=== PATIENT | male | born 1980 | race Caucasian/White ===

== ENCOUNTER 2023-09-01 02:38 | Inpatient (IN) | payer OTHER ==
[~2023-09-01] VITALS: Ht 175.3 cm; Wt 117.0 kg
[2023-09-01] VITALS (12 sets, daily range): BP systolic 108–160; BP diastolic 65–94; PULSE 88–120; TEMP 97.8–100.3
[2023-09-01] MEDS ORDERED: NS 1,000 ML IV ONE ×2 (03:00→05:45)
[2023-09-01] MEDS ORDERED: fentaNYL 50 MCG/ML 2 ML VIAL IV PRN (03:00)
[2023-09-01] MEDS ORDERED: Ondansetron 4 MG/2 ML VIAL IV ONE ×2 (03:00→04:00)
[2023-09-01 03:05] LABS: BASO # 0.1 K/mm3 (0.0-0.2); BASO % 0.5 % (0.0-2.0); EOS # 0.2 K/mm3 (0.0-0.7); EOS % 1.6 % (0.0-4.0); GRAN # 9.1 K/mm3 (1.4-6.5); GRAN % 64.1 % (42.2-75.2); HEMATOCRIT 47.2 % (42.0-52.0); HEMOGLOBIN 16.3 g/dl (13.5-18.0); LYMPH # 3.5 K/mm3 (1.2-3.4); LYMPH % 24.7 % (20.0-51.0); MEAN CELL VOLUME 90 fl (80.0-100.0); MEAN CORPUSCULAR HEMOGLOBIN 31 pg (27-31); MEAN CORPUSCULAR HGB CONC 35 g/dl (33.0-37.0); MEAN PLATELET VOLUME 10.9 fl (7.4-10.4); MONO # 1.2 K/mm3 (0.1-0.6); MONO % 8.5 % (1.7-9.3); PLATELET COUNT 299 K/mm3 (130-400); RED BLOOD COUNT 5.23 M/mm3 (4.20-5.60); REDCELL DISTRIBUTION WIDTH-CV 12.4 % (11.5-14.5)
[2023-09-01 03:26] LABS: TROPONIN-I < 0.010 ng/mL (0.00-0.033)
[2023-09-01 03:28] LABS: ALANINE AMINOTRANSFERASE 613 U/L (0-55); ALBUMIN 3.8 gm/dL (3.5-5.0); ALKALINE PHOSPHATASE 164 U/L (40-150); ANION GAP 15 mmol/L (7-16); AST,SGOT 656 U/L (5-34); BILIRUBIN,TOTAL 2.4 mg/dL (0.2-1.2); BLOOD UREA NITROGEN 18 mg/dL (9-21); CALCIUM 10.2 mg/dL (8.4-10.2); CARBON DIOXIDE 21 mmol/L (22-29); CHLORIDE 100 mmol/L (98-107); CREATININE, serum 1.18 mg/dL (0.72-1.25); GLUCOSE 166 mg/dL (70-99); POTASSIUM 3.9 mmol/L (3.5-4.5); SODIUM 136 mmol/L (136-145); TOTAL PROTEIN 7.6 gm/dL (6.2-8.1)
[2023-09-01] MEDS ORDERED: Iohexol 300 - 100 ML VIAL IV ONE (03:33)
[2023-09-01] MEDS ORDERED: NS 74 ML IV SCH (03:33)
[2023-09-01 03:38] LABS: COLLECTION METHOD CLEAN CATCH
[2023-09-01 04:12] LABS: URINE APPEARANCE Clear (CLEAR/HAZY); URINE COLOR OTHER (YELLOW)
[2023-09-01 04:13] LABS: PH 6.5 (5.0-8.5); URINE BLOOD Negative (NEGATIVE); URINE GLUCOSE Negative (NEGATIVE); URINE KETONE Negative (NEGATIVE); URINE NITRATE Negative (NEGATIVE); URINE PROTEIN(semi-quant) TRACE (NEGATIVE); URINE UROBILINOGEN 0.2 E.U/dL (0.2-1.0)
[2023-09-01 04:14] LABS: TRICYCLIC ANTIDEPRESS URINE NEGATIVE
[2023-09-01 04:19] LABS: SQUAMOUS EPITHELIAL 0-2 /hpf (0-10); URINE BACTERIA Rare /hpf (NONE SEEN); URINE RBC 0-2 /hpf (0-2)
[2023-09-01 05:12] LABS: LIPASE 16776 U/L (8-78)
[2023-09-01] MEDS ORDERED: Morphine 4 MG/ML VIAL IV ONE ×2 (05:45→07:15)
[2023-09-01] MEDS ORDERED: PRINIVIL40 MG PO (06:49)
[2023-09-01] MEDS ORDERED: NORVASC 10MG10 MG PO (06:50)
[2023-09-01] MEDS ORDERED: HCTZ 25MG TAB25 MG PO (06:50)
[2023-09-01] MEDS ORDERED: VOLTAREN 75 DR75 MG PO (06:51)
[2023-09-01] MEDS ORDERED: ULTRAM 50MG TAB50 MG PO (06:51)
[2023-09-01] MEDS ORDERED: VITAMIN D31000 IU PO (06:52)
--- NOTE | 2023-09-01 08:19 | NUR ---
Patient arrived to the medical unit, complaining of pain in the abdomen 05/09. Assessment intake completed.
[2023-09-01] MEDS ORDERED: Ondansetron 4 MG/2 ML VIAL IV PRN (09:00)
[2023-09-01] MEDS ORDERED: Morphine 4 MG/ML VIAL IV PRN (09:00)
[2023-09-01] MEDS ORDERED: NS 1,000 ML IV SCH (09:00)
[2023-09-01] MEDS ORDERED: amLODIPine 10 MG TAB PO SCH (12:04)
[2023-09-01] MEDS ORDERED: Lisinopril 20 MG TAB PO SCH (12:04)
[2023-09-01] MEDS ORDERED: diphenhydrAMINE 25 MG CAP PO PRN (12:30)
[2023-09-01] MEDS ORDERED: diphenhydrAMINE 50 MG/ML 1 ML VIAL IV PRN (12:30)
[2023-09-01] MEDS ORDERED: Naloxone 0.4 MG/ML VIAL IV PRN (12:30)
[2023-09-01] MEDS ORDERED: Morphine PCA 1 MG/ML 30 ML SYRINGE IV SCH (12:30)
--- NOTE | 2023-09-01 13:18 | NUR ---
well service derrick worker met with patient to discuss discharge planning. Patient lives in [place]. Best point of contact is [facility]# [phone]. PCP is Dr. Fajardo, [facility] is [facility]. Patient has no current issues affording medications. Patient does not have a DPOA-HC and does not wish to complete one at this time. Patient reports he has no DME and is independent with ADLS. Patient has a form of transportation to go to and from appointments. Patient has no concerns about returning home at time of discharge. Discharge Plan: Home
--- NOTE | 2023-09-01 17:12 | NUR ---
Patient using SAS DEVELOPER, states his pain is 5/10.He tries to sleep intermitently.
[2023-09-01] MEDS ORDERED: Sennosides/Docusate 8.6-50 MG TAB PO SCH (21:00)
[2023-09-02] VITALS (19 sets, daily range): BP systolic 105–154; BP diastolic 62–84; PULSE 90–120; TEMP 97.8–100.2
--- NOTE | 2023-09-02 01:55 | NUR ---
PT ALERT AND ORIENTED X4. UPON ENTERING THE ROOM PT IS ALERT RESTING IN BED AWAKE. PT HAS BIG DATA ANALYTICS LEAD PUMP AND IV FLUIDS AT 150ML/HR, NO REDNESS, DRAINAGE, OR PHLEBITIS NOTED. SHIFT ASSESSMENT COMPLETE, VSS. MEDICATED PER EMAR. NO NEW CONCERNS REPORTED. EVEN UNLABORED RESPR ON 2 LITERS NASAL CANNULA. DENIES FURTHER NEED AT THIS TIME.CALL LIGHT WITHIN REACH,.
--- NOTE | 2023-09-02 03:50 | NUR ---
pt mews score of 4. Hospitalist notified, tele ordered. Pt denies chest pain but has c/o nausea, zofran given per emar.
[2023-09-02 05:48] LABS: HEMATOCRIT 44.2 % (42.0-52.0); HEMOGLOBIN 15.3 g/dl (13.5-18.0); MEAN CELL VOLUME 90 fl (80.0-100.0); MEAN CORPUSCULAR HEMOGLOBIN 31 pg (27-31); MEAN CORPUSCULAR HGB CONC 35 g/dl (33.0-37.0); MEAN PLATELET VOLUME 10.5 fl (7.4-10.4); PLATELET COUNT 220 K/mm3 (130-400); RED BLOOD COUNT 4.92 M/mm3 (4.20-5.60); REDCELL DISTRIBUTION WIDTH-CV 12.7 % (11.5-14.5)
[2023-09-02 06:09] LABS: BAND 3 % (0-10); LYMPHOCYTE 9 % (20.0-51.0); NEUTROPHILS 83 % (42.0-75.2)
[2023-09-02 06:17] LABS: ALBUMIN 2.7 gm/dL (3.5-5.0); BILIRUBIN,TOTAL 2.2 mg/dL (0.2-1.2); CALCIUM 7.7 mg/dL (8.4-10.2); CHOLESTEROL RISK RATIO 3.1; CREATININE, serum 0.89 mg/dL (0.72-1.25); MAGNESIUM 1.8 mg/dL (1.6-2.6)
--- NOTE | 2023-09-02 08:48 | NUR ---
Initial visit; Patient states he's not sure how he is doing this morning but thanked Telephone Directory Deliverer for stopping and wishing him well and offering God's blessings.
--- NOTE | 2023-09-02 10:19 | NUR ---
Patient alert and oriented x4. Complains of pain 5/10, GEOTHERMAL SYSTEM INSTALLER pump running per orders. Patient's repsirations and SpO2 stable on 3L. Patient ambulating self to bathroom with no issues besides pain, required a hand to sit up. Dyspnea noted with exertion, but would go away with rest. Nausea increases with sitting up, but no emesis noted. Last Zofran administered around 0550. NS running per orders through right forearm IV. Patient resting in bed with call light in reach, all needs met at this time.
[2023-09-02] MEDS ORDERED: BYSTOLIC10 MG PO (11:13)
[2023-09-02] MEDS ORDERED: LIPITOR20 MG PO (11:14)
[2023-09-02] MEDS ORDERED: metroNIDAZOLE 500 MG/100 ML IVPB IV SCH (12:01)
[2023-09-02] MEDS ORDERED: cefTRIAXone 1 G in Water For Injection,Sterile 10 ML IV SCH (12:01)
[2023-09-02] MEDS ORDERED: LR 1,000 ML IV SCH (15:00)
--- NOTE | 2023-09-02 15:57 | NUR ---
PCT notified this nurse that patient's temperature was 100.2. Patient reports malaise, and moderate pain continues. MACHINE MAINTENANCE MECHANIC pump running per orders. NS discontinued and LR running at 125ml/hr. Patient in bed with call light in reach. RAFAEL Wagner notified of temperature. No current orders for Tylenol PRN noted.
[2023-09-02] MEDS ORDERED: Acetaminophen 325 MG TAB PO ONE (16:15)
--- NOTE | 2023-09-02 18:17 | NUR ---
One time order of Tylenol effective for treating fever. Temperature re-taken and noted to be 98.4. States pain is still moderate, but he feels slightly better than he did this morning. Patient resting in bed at this time with call light in reach, all needs met at this time.
[2023-09-03] VITALS (14 sets, daily range): BP systolic 105–164; BP diastolic 62–89; PULSE 90–184; TEMP 98.1–100.3
--- NOTE | 2023-09-03 05:20 | NUR ---
ASSESSMENT COMPLETE FOR NIGHT STAFF. PT COMPLAINED OF PAIN, EVEN WITH THE PAIN PUMP. HOWEVER, PT DIDN'T WANT ME TO CONTACT THE HOSPITALIST FOR ALTERATIONS IN HIS PAINAGEMENT. PT ALSO COMPLAINED OF NAUSEA. PT GIVEN ZOFRAN FOR NAUSEA. PT FELT THE ZOFRAN WAS EFFECTIVE FOR HIS NAUSEA. PT DENIED CHEST PAIN, VOMITING, DIARRHEA OR DIZZINESS. CALL LIGHT WITHIN REACH.
[2023-09-03 07:33] LABS: BASO % 0.3 % (0.0-2.0); EOS % 0.2 % (0.0-4.0); GRAN # 11.3 K/mm3 (1.4-6.5); GRAN % 79.5 % (42.2-75.2); HEMATOCRIT 37.2 % (42.0-52.0); LYMPH # 1.3 K/mm3 (1.2-3.4); LYMPH % 9.1 % (20.0-51.0); MEAN CELL VOLUME 90 fl (80.0-100.0); MEAN CORPUSCULAR HEMOGLOBIN 31 pg (27-31); MEAN CORPUSCULAR HGB CONC 34 g/dl (33.0-37.0); MEAN PLATELET VOLUME 11.2 fl (7.4-10.4); MONO # 1.4 K/mm3 (0.1-0.6); MONO % 10.2 % (1.7-9.3); PLATELET COUNT 173 K/mm3 (130-400); RED BLOOD COUNT 4.14 M/mm3 (4.20-5.60); REDCELL DISTRIBUTION WIDTH-CV 12.7 % (11.5-14.5)
[2023-09-03 07:37] LABS: HEMOGLOBIN 12.8 g/dl (13.5-18.0)
[2023-09-03 08:00] LABS: ALBUMIN 2.2 gm/dL (3.5-5.0); BILIRUBIN,TOTAL 1.1 mg/dL (0.2-1.2); CALCIUM 7.2 mg/dL (8.4-10.2); CREATININE, serum 0.78 mg/dL (0.72-1.25); MAGNESIUM 1.7 mg/dL (1.6-2.6); POTASSIUM 3.7 mmol/L (3.5-4.5); TOTAL PROTEIN 5.7 gm/dL (6.2-8.1)
--- NOTE | 2023-09-03 09:41 | NUR ---
Patient alert and oriented x4. Shift assessment complete, no new variances noted. Patient reports slight improvement of pain at 3/10 which is less than yesterday's reported level of 5/10. Patient continues to ambulate self to bathroom with no issues. Slight difficulty noted with sitting up from bed, shortness of breath noted with exertion. Heart rate continues to be tachycardic. FLIGHT CREW TIME CLERK pump morphine and LR running per orders through left forearm. Patient in bed with call light in reach, all needs met at this time.
[2023-09-03] MEDS ORDERED: NS 1,000 ML IV SCH ×2 (12:30→17:15)
[2023-09-03] MEDS ORDERED: oxyCODONE 5 MG TAB PO PRN (12:45)
[2023-09-03] MEDS ORDERED: Morphine 4 MG/ML VIAL IV PRN (12:45)
--- NOTE | 2023-09-03 14:32 | NUR ---
Patient taken off WATERSHED COORDINATOR per orders, reported increase in pain level 5/10 after walking around room and sitting in recliner. PRN morphine administered. NS running at 100ml/hr through left forearm IV. Patient on room air for a few minutes following WATERSHED COORDINATOR pump discontinuation and SpO2 checked. O2 sat 86% on room air. Patient placed on 2L via nasal cannula and O2 sat increased to 91%. Patient currently sitting up in recliner eating a clear liquid tray, tolerating PO fluids well at this time. Patient voices no concerns other than surgery planning, states he is anxious to get home as soon as possible.
--- NOTE | 2023-09-03 19:07 | NUR ---
Patient continues to have moderate pain and be active in room. Complains of increase in pain 5/10, PRN Roxicodone administered. Consent obtained for procedure in the morning as well as anesthesia. Patient still on 2L O2 via nasal cannula. Currently laying in bed with call light in reach, all needs met at this time.
[2023-09-03] MEDS ORDERED: Acetaminophen 325 MG TAB PO PRN (20:00)
[2023-09-04] VITALS (744 sets, daily range): BP systolic 112–172; BP diastolic 68–99; PULSE 81–125; TEMP 98–99.6; O2SAT 56–100
[2023-09-04] MEDS ORDERED: Indocyanine Green 12.5 MG in Water For Injection,Sterile 2.5 ML IV ONE (05:00)
[2023-09-04] MEDS ORDERED: dexAMETHasone 10 MG/ML VIAL ONE (07:43)
[2023-09-04] MEDS ORDERED: fentaNYL 50 MCG/ML 2 ML VIAL ONE ×2 (07:43→09:34)
[2023-09-04] MEDS ORDERED: Rocuronium 50 MG/5 ML Multi-Dose VIAL ONE (07:43)
[2023-09-04] MEDS ORDERED: Ketorolac 30 MG/ML VIAL ONE (07:43)
[2023-09-04] MEDS ORDERED: Ondansetron 4 MG/2 ML VIAL ONE (07:43)
[2023-09-04] MEDS ORDERED: Lidocaine PF 2% (20 MG/ML) 5 ML VIAL ONE (07:43)
[2023-09-04] MEDS ORDERED: NS 10 ML IV ONE (07:43)
[2023-09-04] MEDS ORDERED: Ondansetron 4 MG/2 ML VIAL IV PRN (08:00)
[2023-09-04] MEDS ORDERED: hydrALAZINE 20 MG/ML 1 ML VIAL IV PRN (08:00)
[2023-09-04] MEDS ORDERED: HYDROmorphone 2 MG/1 ML VIAL IV PRN (08:00)
[2023-09-04] MEDS ORDERED: Promethazine 25 MG/ML 1 ML VIAL IV PRN (08:00)
[2023-09-04] MEDS ORDERED: fentaNYL 50 MCG/ML 2 ML VIAL IV PRN (08:00)
[2023-09-04 08:25] LABS: BASO # 0.1 K/mm3 (0.0-0.2); BASO % 0.6 % (0.0-2.0); EOS % 0.2 % (0.0-4.0); GRAN # 9.9 K/mm3 (1.4-6.5); GRAN % 78.9 % (42.2-75.2); HEMOGLOBIN 12.5 g/dl (13.5-18.0); LYMPH % 8.2 % (20.0-51.0); MEAN CELL VOLUME 90 fl (80.0-100.0); MEAN CORPUSCULAR HEMOGLOBIN 31 pg (27-31); MEAN CORPUSCULAR HGB CONC 34 g/dl (33.0-37.0); MEAN PLATELET VOLUME 11.2 fl (7.4-10.4); MONO # 1.4 K/mm3 (0.1-0.6); MONO % 10.8 % (1.7-9.3); PLATELET COUNT 189 K/mm3 (130-400); RED BLOOD COUNT 4.03 M/mm3 (4.20-5.60); REDCELL DISTRIBUTION WIDTH-CV 12.4 % (11.5-14.5)
[2023-09-04 08:31] LABS: HEMATOCRIT 36.3 % (42.0-52.0)
[2023-09-04 08:49] LABS: CALCIUM 7.5 mg/dL (8.4-10.2); CREATININE, serum 0.69 mg/dL (0.72-1.25); POTASSIUM 3.5 mmol/L (3.5-4.5)
[2023-09-04] MEDS ORDERED: Lisinopril 20 MG TAB PO SCH (09:00)
[2023-09-04] MEDS ORDERED: Succinylcholine PF 100 MG/5 ML SYRINGE/POLY AMP IV ONE (09:16)
--- NOTE | 2023-09-04 09:59 | NUR ---
Patient alert and oriented x4, states pain is 5/10 this morning. PRN Morphine adminsitered and effective. Shift assessment complete, no new variances noted. BP elevated this morning prior to pain medication. IC-Green Angiography administered this morning prior to procedure per orders. Patient off unit at this time for lap shivani procedure.
[2023-09-04] MEDS ORDERED: Iohexol 350 - 100 ML VIAL BILE DUCT ONE (10:17)
[2023-09-04] MEDS ORDERED: Topical Skin Adhesive 1 EACH (1 ML) TOP ONE ×2 (10:18→11:00)
--- NOTE | 2023-09-04 11:45 | NUR ---
Patient arrived to the unit from the PACU. Patient coughing and fighting against the ventilator on arrival. Initiated sedation orders per protocol. Restraints were placed due to patient raising arms up and reaching towards the ET tube. Propofol was increased to max dosage per Dr. Min due to elevated peak pressures and frequent coughing. Peak pressures improved with when patient was adequately sedated.
[2023-09-04] MEDS ORDERED: Midazolam 2 MG/2 ML VIAL IV ONE (12:30)
[2023-09-04] MEDS ORDERED: fentaNYL 100 ML IV SCH (14:00)
[2023-09-04] MEDS ORDERED: Albuterol/Ipratropium 3 MG-0.5 MG/3 ML Neb Soln IH SCH (14:00)
[2023-09-04 15:01] LABS: ARTERIAL BLD GAS TCO2 CT 20.9; ARTERIAL BLOOD GAS BASE EXCESS -4.9 (-2-2); ARTERIAL BLOOD GAS HCO3 19.8 meq/L (22-26); ARTERIAL BLOOD GAS PCO2 35.4 mmHg (35-45); ARTERIAL BLOOD GAS PO2 84.6 mmHg (80-100); ARTERIAL BLOOD GAS pH 7.37 (7.35-7.45)
--- NOTE | 2023-09-04 17:48 | NUR ---
Tolerating ventilator well; VS stable.
--- NOTE | 2023-09-04 22:00 | NUR ---
PATIENT APPEARS TO BE TOLERATING VENTILATOR. PATIENT ABLE TO OBEY COMMANDS AND DOES NOT SEEM TO BE IN DISTRESS AT THIS TIME. ET TUBE AND OG TUBE INTACT. DRIVER CATHETAR PATENT, NONVIOLENT RESTRAINTS ADEQUATLY ENFORCED. SCDS APPLIED. BED IS IN LOW POSITION AND PATIENT IS IN OBSERVABLE AREA.
[2023-09-05] VITALS (959 sets, daily range): BP systolic 111–146; BP diastolic 61–78; PULSE 76–107; TEMP 97.7–99.5; O2SAT 57–100
--- NOTE | 2023-09-05 02:10 | NUR ---
AT 0145, PATIENT BECAME EXTREMELY AGITATED. VENTILATOR CONTINUED TO SOUND - SEDATION AND POSITION ADJUSTEMENTS MADE TO TRY TO COMBAT AGITATION. SUCTION COMPLETED DUE TO COUGHING. RN WAS UNABLE TO SETTLE PATIENT. RT CALLED TO BEDSIDE. RT LAVAGED PATIENT. HOSPITALIST CALLED FOR ADDITIONAL HELP. PROVIDER SPOKE WITH E-CARE AND IT DECIDED THAT RN WAS TO CONTINUE TO INCREASE FENTANYL UNTIL 200 MCG/HR IF NEEDED. IF UNSUCCESSFUL, RN WAS TO CALL HOSPITALIST FOR OTHER OPTIONS.
--- NOTE | 2023-09-05 04:05 | NUR ---
PATIENT NOT TOLERATING VENTILATOR. PATIENT BECOMING VERY AGITATED - MAXED ON SEDATION. PROVIDER CALLED FOR RECOMMENDATIONS AFTER NONPHARMACOLOGICAL TECHNIQUES ATTEMPTED. PROVIDER SPEAKING WITH E-CARE.
--- NOTE | 2023-09-05 04:15 | NUR ---
PATIENT WROTE ON PIECE OF PAPER "HUNGRY" AND "DISCONNECT ME" - PROVIDER NOTIFIED.
--- NOTE | 2023-09-05 05:13 | NUR ---
BASED ON E-CARE RECOMMENDATIONS, HOSPITALIST DECIDED TO PROCEED WITH WEANING TRIAL. SPONTANEOUS BREATHING TRIAL BEGAN AT THIS TIME. SEDATION IS OFF AND PATIENT IS ALERT AND ORIENTED.
[2023-09-05 05:50] LABS: ARTERIAL BLD GAS O2 SATURATION 84.7 % (92-100); ARTERIAL BLD GAS TCO2 CT 26.9; ARTERIAL BLOOD GAS BASE EXCESS 2.4 (-2-2); ARTERIAL BLOOD GAS HCO3 25.8 meq/L (22-26); ARTERIAL BLOOD GAS PCO2 36.1 mmHg (35-45); ARTERIAL BLOOD GAS pH 7.47 (7.35-7.45)
[2023-09-05 05:51] LABS: ARTERIAL BLOOD GAS PO2 41.5 mmHg (80-100)
[2023-09-05 05:54] LABS: HEMOGLOBIN 11.5 g/dl (13.5-18.0); MEAN CELL VOLUME 91 fl (80.0-100.0); MEAN CORPUSCULAR HEMOGLOBIN 31 pg (27-31); MEAN CORPUSCULAR HGB CONC 34 g/dl (33.0-37.0); MEAN PLATELET VOLUME 11.2 fl (7.4-10.4); PLATELET COUNT 197 K/mm3 (130-400); RED BLOOD COUNT 3.71 M/mm3 (4.20-5.60); REDCELL DISTRIBUTION WIDTH-CV 12.7 % (11.5-14.5)
[2023-09-05] MEDS ORDERED: Midazolam 2 MG/2 ML VIAL IV ONE (06:00)
--- NOTE | 2023-09-05 06:03 | NUR ---
AFTER FURTHER EVALUATION AND DISCUSSION AMONGST PROVIDERS, WEANING TRIAL WAS STOPPED AND SEDATION WAS REINITIATED.
[2023-09-05 06:12] LABS: HEMATOCRIT 33.7 % (42.0-52.0)
--- NOTE | 2023-09-05 06:16 | NUR ---
PATIENT IS TOLERATING VENTILATOR AT THIS TIME. SEDATION WAS REINITIATED AT PREVIOUS DOSES PER PROVIDER AND VERSED GIVEN ORDERED. PATIENT DOES NOT APPEAR TO BE IN DISTRESS OR DISCOMFORT.
[2023-09-05 06:22] LABS: BILIRUBIN,TOTAL 0.4 mg/dL (0.2-1.2); CALCIUM 7.1 mg/dL (8.4-10.2); CREATININE, serum 0.69 mg/dL (0.72-1.25); POTASSIUM 3.6 mmol/L (3.5-4.5); TOTAL PROTEIN 5.9 gm/dL (6.2-8.1)
[2023-09-05] MEDS ORDERED: Midazolam 2 MG/2 ML VIAL IV PRN (06:45)
[2023-09-05 07:15] LABS: BAND 10 % (0-10); LYMPHOCYTE 7 % (20.0-51.0); NEUTROPHILS 75 % (42.0-75.2); PLATELET ESTIMATE NORMAL (NORMAL)
--- NOTE | 2023-09-05 08:31 | NUR ---
Nurse reported that patient was awake most of the night, restless, trying to write out needs. Despite sedation maxed out, patient was able to follow commands. At this time, patient is resting post versed push at 0610 given by nightshift. A weaning trial was tried this morning, after consulting with manager home healthcare, an extubation was not advised before manager home healthcare was on the floor and ready for complications. At 0820, after consulting with [facility] home healthcare, PROP/FENT have been halfed in dose, to retry a weaning trial to potentially extubate sometime this morning. ABG reported this am is a significant change from the day before. New labs are ordered
[2023-09-05] MEDS ORDERED: EPINEPHrine (Race Epi) 2.25% Neb Soln 11.25 MG/0.5 ML AMP IH ONE (09:30)
[2023-09-05] MEDS ORDERED: SODIUM CHLORIDE 0.9% IH ONE (09:45)
[2023-09-05] MEDS ORDERED: Sodium Chloride 3% For Neb Soln 4 ML AMP IH ONE (09:45)
--- NOTE | 2023-09-05 11:53 | NUR ---
PT EXTUBATED AT [address] HAIR ORDERS.DR ZARAGOZA AT BEDSIDE FOR EXTUBATION.PT SUCTIONED ORALLY AND VIA ETT PRIOR TO PROCEDURE.PT GIVEN RACEMIC EPI SVN POST EXTUBATION PER DR HAIR.PT ROSA ELENA WELL.NO DISTRESS NOTED.NO STRIDOR NOTED.BLBS CLEAR AND EQUAL.PT PLACED ON 7L OXYMASK.HR 109,RR 20,SPO2 92%. PT RESTING COMFORTABLE.
--- NOTE | 2023-09-05 19:04 | NUR ---
Patient sedation was reduced at 0820 and was off by 0854. CPAP trial was initiated at 09, and was extubated at 0912. HFNC on at 7.5L, since has been reduced to room air at this time. Breathing has been unlabored with saturations at 92%. Chairez was removed at 1130, has voided since x2. Has eaten and drank without nausea/vomit or stomach pain. Currently refuses iv fluid at this time, reported to rn night nurse. Requesting shower and would like to walk in the halls.
--- NOTE | 2023-09-05 20:09 | NUR ---
PATIENT APPEARS TO BE DOING WELL AND DOES NOT SHOW SIGNS OF ACUTE DISTRESS. PATIENT REQUESTED TO GO ON WALK AROUND THE UNIT WITH RN. WHILE AMBULATING, WALKER WAS USED. PATIENT STATED HIS ABDOMEN FEELS TIGHT AND A LITTLE TENDER; ALSO STATED HE FEELS "PUFFY" AND IS REFUSING IV FLUIDS. RN EDUCATED ON FLUID INTAKE AND NOTIFIED PROVIDER. PATIENT IS NOW SITTING UP IN THE RECLINER WATCHING TV. CALL LIGHT WITHIN REACH AND PATIENT IN OBSERVABLE AREA.
--- NOTE | 2023-09-05 21:50 | NUR ---
PATIENT CALLED NURSE INTO THE ROOM AND STATED "I THINK I HAVE A HERNIA ON MY SCROTUM. ITS REALLY SWOLLEN AND IT WORRIES ME." PATIENT PERSISTED BY ASKING THE RN TO FIND A MALE NURSE TO ASSESS THE ISSUE. PATIENT WAS TOLD THERE ARE NO MALE NURSES ON THE UNITS TONIGHT AND HOSPITALIST WAS CALLED. SITAUTION WAS EXPLAINED TO HOSPITALIST - RECOMMENDATIONS ARE TO WAIT AND HAVE DR. HERRERA, HOSPITALIST FOR TOMORROW, LOOK AT IT. PATIENT OK WITH THIS PLAN.
[2023-09-06] VITALS (30 sets, daily range): BP systolic 149–164; BP diastolic 84–97; PULSE 92–112; TEMP 98.7–100.7; O2SAT 76–95
[2023-09-06 04:17] LABS: HEMOGLOBIN 12.3 g/dl (13.5-18.0); MEAN CELL VOLUME 89 fl (80.0-100.0); MEAN CORPUSCULAR HEMOGLOBIN 31 pg (27-31); MEAN CORPUSCULAR HGB CONC 35 g/dl (33.0-37.0); MEAN PLATELET VOLUME 10.8 fl (7.4-10.4); PLATELET COUNT 249 K/mm3 (130-400); RED BLOOD COUNT 3.98 M/mm3 (4.20-5.60); REDCELL DISTRIBUTION WIDTH-CV 12.5 % (11.5-14.5)
[2023-09-06 04:21] LABS: HEMATOCRIT 35.3 % (42.0-52.0)
[2023-09-06 04:29] LABS: CALCIUM 7.7 mg/dL (8.4-10.2); CREATININE, serum 0.65 mg/dL (0.72-1.25); POTASSIUM 3.2 mmol/L (3.5-4.5)
[2023-09-06 05:05] LABS: BAND 15 % (0-10); LYMPHOCYTE 9 % (20.0-51.0); NEUTROPHILS 67 % (42.0-75.2); PLATELET ESTIMATE NORMAL (NORMAL)
[2023-09-06] MEDS ORDERED: Insulin Regular Human (NovoLIN R/HumuLIN R) IV ONE (07:30)
[2023-09-06] MEDS ORDERED: Furosemide 40 MG/4 ML VIAL IV ONE (08:30)
[2023-09-06] MEDS ORDERED: *Potassium Replacement Protocol MC SCH (09:30)
[2023-09-06] MEDS ORDERED: Potassium Bicarbonate/Citrate 20 MEQ Effervescent TAB PO SCH (09:30)
[2023-09-06] MEDS ORDERED: Albuterol/Ipratropium 3 MG-0.5 MG/3 ML Neb Soln IH PRN (16:15)
--- NOTE | 2023-09-06 19:31 | NUR ---
report received from tenisha vora. pt resting in bed watching tv. pt denies pain. call light in reach. all needs met at this time.
--- NOTE | 2023-09-06 20:46 | NUR ---
shift assessment complete, see documentation. pt denies pain at this time. pt refused senokot tablets because he is having regular bowel movements, pt educated on the importance of stool softeners and provided understanding. pt assisted to bed with sba. scrotum elevated using towels and ble elevated utilizing the bed. pt tolerated hs meds well with abx still running without issue. call light in reach. all needs met at this time.
[2023-09-07 03:08] VITALS: BP 156/92; PULSE 107; TEMP 99.4
[2023-09-07 07:34] VITALS: BP 168/94; PULSE 111; TEMP 98.8
--- NOTE | 2023-09-07 09:08 | NUR ---
Report received; patient currently resting in bed. Patient is stable and vital signs have been within normal limits overnight.
[2023-09-07] MEDS ORDERED: *Potassium Replacement Protocol MC SCH (09:15)
[2023-09-07] MEDS ORDERED: Potassium Chloride 100 ML IV SCH (09:15)
[2023-09-07] MEDS ORDERED: AMOXICILLIN 8751 TAB PO (10:49)
[2023-09-07 11:29] VITALS: BP 151/83; PULSE 94; TEMP 98.8
--- NOTE | 2023-09-07 11:32 | NUR ---
REPORT RECEIVED FROM NICKIE AT THIS TIME. PT RESTING IN BED WITH PAIN 2/10 IN ABDOMEN DUE TO BLOATING. STEADY GAIT, VOIDING WELL. 5 LAP SITES ON ABDOMEN TO SKIN GLUE. WILL CONTINUE TO MONITOR.
--- NOTE | 2023-09-07 14:57 | NUR ---
DISCHARGE INSTRUCTIONS PROVIDED. DISCUSSED FOLLOW UP APPOINTMENTS, NEW MEDICATIONS AND SIGNS OF INFECTION. PERIPHERAL IV AND TRIPPLE LUMAN REMOVED. PT AND BELONGINGS ESCORTED OUT OF BUILDING AT THIS TIME.
== END 2023-09-07 14:13 | disposition home or self-care (01) | DRG 417 ==
LOC: COL.ER 02:38 → SURG 07:11 → MEDICAL 07:11 → ICU 08:49 → MEDICAL 09-02 08:46 → ICU 09-04 12:15 → SURG 09-06 11:39
PROVIDERS: Emergency Medicine; Internal Medicine; Internal Medicine Sleep Medicine; Physician Assistant; Surgery; ADMIT Internal Medicine
PROC: 8E0W4CZ Robotic Assisted Procedure of Trunk Region, Percutaneous Endoscopic Approach (ICD-10-PCS; 2023-09-04)
PROC: 5A1935Z Respiratory Ventilation, Less than 24 Consecutive Hours (ICD-10-PCS; 2023-09-04)
PROC: 4A1BXSH Monitoring of Gastrointestinal Vascular Perfusion using Indocyanine Green Dye, External Approach (ICD-10-PCS; 2023-09-04)
PROC: 02HV33Z Insertion of Infusion Device into Superior Vena Cava, Percutaneous Approach (ICD-10-PCS; 2023-09-04)
PROC: 0FT44ZZ Resection of Gallbladder, Percutaneous Endoscopic Approach (ICD-10-PCS; principal; 2023-09-04 09:30)
DX: K85.10 Biliary acute pancreatitis without necrosis or infection (principal); J96.01 Acute respiratory failure with hypoxia; G47.33 Obstructive sleep apnea (adult) (pediatric); I10 Essential (primary) hypertension; K76.0 Fatty (change of) liver, not elsewhere classified; E66.9 Obesity, unspecified; Z68.38 Body mass index [BMI] 38.0-38.9, adult; F17.210 Nicotine dependence, cigarettes, uncomplicated; Z79.82 Long term (current) use of aspirin
CPT/HCPCS: A4314; J0330; J0690; J0696; J1100; J1650; J1836; J1885; J1940; J2250; J2270; J2405; J2543; J2704; J3010; J3480; J7030; J7120; Q9967